=== PATIENT | male | born 1955 | race Caucasian/White ===

== ENCOUNTER 2020-03-16 11:35 | Emergency (ER) | payer OTHER ==
--- NOTE | 2020-03-16 11:55 | ER ---
Nurse's Notes [facility] Name: Дмитрий Lundy Age: 64 yrs Sex: Male : 1955 Arrival Date: 03/16/2020 Time: 11:29 Bed 17 Private MD: Diagnosis: Low back pain;Sciatica, right side Presentation: 03/16 11:31 Chief complaint: Patient states: R low back pain that began 3 days ago. No injury. Pt ss reports that the pain radiates down R leg as well. Coronavirus screen: Patient denies a cough. Patient denies shortness of breath or difficulty breathing. Patient denies measured and/or subjective temperature greater than 100.4F prior to today's visit. Patient denies travel on a cruise ship or to a country the [facility] currently lists as an affected area. Patient denies contact with known and/or suspected case of COVID-19. Proceed with normal triage. Patient instructed to continue to wear a mask when interacting with others. Patient moved to private room, placed in contact and droplet isolation with eye protection until further assessment. Ebola Screen: Patient denies exposure to infectious person. Patient denies travel to an Ebola-affected area in the 21 days before illness onset. Initial Sepsis Screen: Does the patient meet any 2 criteria? No. Patient's initial sepsis screen is negative. Does the patient have a suspected source of infection? No. Patient's initial sepsis screen is negative. Risk Assessment: Do you want to hurt yourself or someone else? Patient reports no desire to harm self or others. Onset of symptoms was March 13, 2020. 11:31 Method Of Arrival: EMS: [facility] ss 11:31 Acuity: RICHARD 4 ss Triage Assessment: 11:31 General: Appears in no apparent distress. uncomfortable, well developed, Behavior is sv calm, cooperative, appropriate for age. Pain: Complains of pain in right low back Pain radiates to right leg Pain currently is 2 out of 10 on a pain scale. Neuro: Level of Consciousness is awake, alert, obeys commands, Oriented to person, place, time, situation, Moves all extremities. Full function Speech is normal. Respiratory: Airway is patent Respiratory effort is even, unlabored, Respiratory pattern is regular, symmetrical. Derm: Skin is pink, warm \T\ dry. Musculoskeletal: Range of motion: intact in all extremities. Historical: - Allergies: 11:30 No Known Allergies; sv - PMHx: 11:30 Hypertension; Enlarged prostate; sv 11:30 High Cholesterol; Sleep Apnea; sv - PSHx: 11:30 Carpal Tunnel Repair; femur; sv - Immunization history:: Adult Immunizations up to date. - Social history:: Smoking status: Patient denies any tobacco usage or history of. Screenin:30 Abuse screen: Denies threats or abuse. Denies injuries from another. Nutritional sv screening: No deficits noted. Tuberculosis screening: No symptoms or risk factors identified. Fall Risk None identified. Assessment: 11:59 Reassessment: Patient appears in no apparent distress at this time. No changes from previously documented assessment. Patient and/or family updated on plan of care and expected duration. Pain level reassessed. Patient is alert, oriented x 3, equal unlabored respirations, skin warm/dry/pink. Pt waiting IM shot time before discharge. Vital Signs: 11:31 BP 128 / 93; Pulse 71; Resp 16; Temp 97.8(TE); Pulse Ox 98% on R/A; Weight 99.79 kg; ss Height 6 ft. 0 in. (182.88 cm); Pain 2/10; 12:21 BP 151 / 81; Pulse 63; Resp 17; Pulse Ox 99% ; ll1 11:31 Body Mass Index 29.84 (99.79 kg, 182.88 cm) ED Course: 11:29 Patient arrived in ED. sv 11:29 Ashley Newman, RN is Primary Nurse. sv 11:30 Patient has correct armband on for positive identification. Bed in low position. Call sv light in reach. Pulse ox on. NIBP on. Door closed. Head of bed elevated. 11:31 Arm band placed on right wrist. ss 11:33 Triage completed. ss 11:34 [facility]C [facility]. kb 11:34 Gurwinder Tanner MD is Attending Physician. kb 12:22 No provider procedures requiring assistance completed. Patient did not have IV access ll1 during this emergency room visit. Administered Medications: 11:57 Drug: TORadol 30 mg Route: IM; Site: right deltoid; sv 12:21 Follow up: Response: No adverse reaction; Pain is decreased; RASS: Alert and Calm (0) ll1 11:57 Drug: [place] 10 mg-325 mg 1 tabs {Note: rass1.} Route: PO; sv 12:21 Follow up: Response: No adverse reaction; RASS: Alert and Calm (0) ll1 Outcome: 11:55 Discharge ordered by . kb 12:22 Discharged to home ambulatory. ll1 12:22 Condition: stable 12:22 Discharge instructions given to patient, Instructed on discharge instructions, follow up and referral plans. no drinking with medication, no driving heavy equipment, medication usage, Demonstrated understanding of instructions, follow-up care, medications, Prescriptions given X 2. 12:22 Patient left the ED. ll1 Signatures: Alee Aguayo, FIRE PREVENTION BUREAU CAPTAIN-C FIRE PREVENTION BUREAU CAPTAIN-Ashley Hatfield RN RN Desiree Chan RN RN ss Chetna London RN RN 1 Corrections: (The following items were deleted from the chart) 11:59 11:59 Reassessment: Patient appears in no apparent distress at this time. No changes sv from previously documented assessment. Patient and/or family updated on plan of care and expected duration. Pain level reassessed. Patient is alert, oriented x 3, equal unlabored respirations, skin warm/dry/pink. sv
--- NOTE | 2020-03-16 11:55 | EDPHYS ---
Physician Documentation [facility] Name: Дмитрий Lundy Age: 64 yrs Sex: Male : 1955 Arrival Date: 03/16/2020 Time: 11:29 Bed 17 Private MD: TERI Physician Gurwinder Tanner HPI: 03/16 11:51 This 64 yrs old Male presents to ER via EMS with complaints of Low Back Pain. kb 11:51 The patient presents with pain that is acute, with no known mechanism of injury. The kb symptoms are located in the right low back. The pain radiates to the right leg. The problem was sustained without known cause. Onset: The symptoms/episode began/occurred 5 day(s) ago. Modifying factors: The patient symptoms are alleviated by nothing, the patient symptoms are aggravated by any movement. Associated signs and symptoms: Pertinent positives: none Pertinent negatives: dysuria, fever, incontinence, numbness, tingling, weakness. Severity of symptoms: At their worst the symptoms were moderate, in the emergency department the symptoms are unchanged. The patient has experienced similar episodes in the past, a few times. The patient has not recently seen a physician. Pt reports he has had sciatic nerve pain before and his current pain feels the same. States he started feeling that pain on Wednesday and believes it was irritated when he mowed the lawn that day. Denies injury or trauma. Right low back pain has been constant, waxing and waning with intermittent radiation down right leg. . Historical: - Allergies: 11:30 No Known Allergies; sv - PMHx: 11:30 Hypertension; Enlarged prostate; sv 11:30 High Cholesterol; Sleep Apnea; sv - PSHx: 11:30 Carpal Tunnel Repair; femur; sv - Immunization history:: Adult Immunizations up to date. - Social history:: Smoking status: Patient denies any tobacco usage or history of. ROS: 11:50 Constitutional: Negative for fever, chills, and weight loss, Cardiovascular: Negative kb for chest pain, palpitations, and edema, Respiratory: Negative for shortness of breath, cough, wheezing, and pleuritic chest pain, Abdomen/GI: Negative for abdominal pain, nausea, vomiting, diarrhea, and constipation, : Negative for injury, bleeding, discharge, and swelling, MS/Extremity: Negative for injury and deformity, Skin: Negative for injury, rash, and discoloration, Neuro: Negative for headache, weakness, numbness, tingling, and seizure. 11:50 Back: Positive for pain at rest, pain with movement, of the right low back. Exam: 11:50 Constitutional: This is a well developed, well nourished patient who is awake, alert, kb and in no acute distress. Head/Face: Normocephalic, atraumatic. Neck: Trachea midline, no thyromegaly or masses palpated, and no cervical lymphadenopathy. Supple, full range of motion without nuchal rigidity, or vertebral point tenderness. No Meningismus. Chest/axilla: Normal chest wall appearance and motion. Nontender with no deformity. No lesions are appreciated. Cardiovascular: Regular rate and rhythm with a normal S1 and S2. No gallops, murmurs, or rubs. Normal PMI, no JVD. No pulse deficits. Respiratory: Lungs have equal breath sounds bilaterally, clear to auscultation and percussion. No rales, rhonchi or wheezes noted. No increased work of breathing, no retractions or nasal flaring. Abdomen/GI: Soft, non-tender, with normal bowel sounds. No distension or tympany. No guarding or rebound. No evidence of tenderness throughout. Skin: Warm, dry with normal turgor. Normal color with no rashes, no lesions, and no evidence of cellulitis. MS/ Extremity: Pulses equal, no cyanosis. Neurovascular intact. Full, normal range of motion. Neuro: Awake and alert, GCS 15, oriented to person, place, time, and situation. Cranial nerves II-XII grossly intact. Motor strength 5/5 in all extremities. Sensory grossly intact. Cerebellar exam normal. Normal gait. 11:50 Back: pain, that is moderate, of the right low back, ROM is painful, normal spinal alignment noted, CVA tenderness, is absent, vertebral tenderness, is not appreciated. Vital Signs: 11:31 BP 128 / 93; Pulse 71; Resp 16; Temp 97.8(TE); Pulse Ox 98% on R/A; Weight 99.79 kg; ss Height 6 ft. 0 in. (182.88 cm); Pain 2/10; 12:21 BP 151 / 81; Pulse 63; Resp 17; Pulse Ox 99% ; ll1 11:31 Body Mass Index 29.84 (99.79 kg, 182.88 cm) MDM: 11:34 Patient medically screened. kb 11:51 Data reviewed: vital signs, nurses notes. Data interpreted: Pulse oximetry: on room air kb is 98 %. Interpretation: normal. Counseling: I had a detailed discussion with the patient and/or guardian regarding: the historical points, exam findings, and any diagnostic results supporting the discharge/admit diagnosis, the need for outpatient follow up, a family practitioner, to return to the emergency department if symptoms worsen or persist or if there are any questions or concerns that arise at home. Administered Medications: 11:57 Drug: TORadol 30 mg Route: IM; Site: right deltoid; sv 12:21 Follow up: Response: No adverse reaction; Pain is decreased; RASS: Alert and Calm (0) ll1 11:57 Drug: [place] 10 mg-325 mg 1 tabs {Note: rass1.} Route: PO; sv 12:21 Follow up: Response: No adverse reaction; RASS: Alert and Calm (0) ll1 Disposition: 03/17 10:23 Co-signature as Attending Physician, Gurwinder Tanner MD I agree with the assessment and todd plan of care. Disposition: 03/16/20 11:55 Discharged to Home. Impression: Low back pain, Sciatica, right side. - Condition is Stable. - Discharge Instructions: Back Injury Prevention, [id number], Back Pain, Adult, Nulx-kf-Oaav, Sciatica, Affx-ij-Hvrz, Back Exercises, Jspx-[id number]. - Prescriptions for Cyclobenzaprine 10 mg Oral Tablet - take 1 tablet by ORAL route every 8 hours As needed; 21 tablet. Diclofenac Sodium 75 mg Oral Tablet, Delayed Release (E.C.) - take 1 tablet by ORAL route 2 times per day As needed; 30 tablet. - Medication Reconciliation Form, Thank You Letter, Antibiotic Education, Prescription Opioid Use form. - Follow up: Emergency Department; When: As needed; Reason: Worsening of condition. Follow up: Private Physician; When: 2 - 3 days; Reason: Recheck today's complaints, Continuance of care, Re-evaluation by your physician. Signatures: Alee Aguayo, Ashley Hein RN RN sv Anderson, Corey, MD MD cha [facility] Desiree, ELADIA RN ss Chetna London RN RN ll1 Corrections: (The following items were deleted from the chart) 03/16 12:22 11:55 03/16/2020 11:55 Discharged to Home. Impression: Low back pain; Sciatica, right ll1 side. Condition is Stable. Forms are Medication Reconciliation Form, Thank You Letter, Antibiotic Education, Prescription Opioid Use. Follow up: Emergency Department; When: As needed; Reason: Worsening of condition. Follow up: Private Physician; When: 2 - 3 days; Reason: Recheck today's complaints, Continuance of care, Re-evaluation by your physician. kb
[2020-03-16] MEDS ORDERED: HYDROCODONE/APAP 10/325 TAB ONE (12:00)
[2020-03-16] MEDS ORDERED: KETOROLAC 30 MG/ML INJ ONE (12:00)
[2020-03-16 12:26] VITALS: BP 151/81; O2SAT 99
== END 2020-03-16 12:22 | disposition home or self-care (01) ==
LOC: ER 11:35
DX: M54.31 Sciatica, right side (principal); I10 Essential (primary) hypertension
CPT/HCPCS: 96372; 99284

== ENCOUNTER 2020-10-29 06:32 | Day surgery (SDC) | payer OTHER ==
--- NOTE | 2020-10-24 14:47 | RAD REPORT ---
EXAM DESCRIPTION: Christian Robles (2 Views)10/24/2020 2:40 pm CLINICAL HISTORY: Preop for prostate surgery. Hypertension COMPARISON: 2008 FINDINGS: The lungs appear clear of acute infiltrate. The heart is normal size IMPRESSION: No acute abnormalities displayed
[2020-10-24 15:31] LABS: Absolute Lymphocytes (CBC) 1.3 K/uL (0.7-4.9); Basophils % 0.5 % (0-1.3); Hematocrit 42.5 % (39.6-49.0); Lymphocytes % 16.4 % (15.3-44.8); MPV 9.3 fL (7.6-11.3); RBC Red Blood Cell Count 4.83 M/uL (4.33-5.43)
[2020-10-24 15:32] LABS: Protime INR 0.95
[2020-10-24 15:36] LABS: Potassium 3.9 mmol/L (3.5-5.1)
--- NOTE | 2020-10-25 14:12 | EKG ---
Test Date: 2020-10-24 Test Time: 14:12:30 Senior Managing Director: TAL MEASUREMENT RESULTS: Intervals: Rate: 77 [place]: 146 QRSD: 84 QT: 364 QTc: 411 [place]: P: 57 [place]: 146 QRS: -2 T: 47 INTERPRETIVE STATEMENTS: Normal sinus rhythm Normal ECG Compared to ECG 10/27/2007 09:47:53 No significant changes Electronically Signed On 10-25-20 14:09:11 SYSTEMS ANALYST DEVELOPER by Mark Payton
[2020-10-29] MEDS: Ringers Lactate 1,000 ML IV ONE ×3 (07:00→09:25)
[2020-10-29] MEDS ORDERED: FENTANYL CITR 100 MCG/2 ML ONE (07:20)
[2020-10-29] MEDS ORDERED: propofoL 200 MG/20 ML VIAL IV ONE (07:20)
[2020-10-29] MEDS ORDERED: LIDOCAINE 1% MPF 5 ML VIAL ONE (07:21)
[2020-10-29] MEDS ORDERED: KETOROLAC 30 MG/ML INJ ONE (07:21)
[2020-10-29] MEDS ORDERED: ONDANSETRON 4 MG/2 ML VIAL ONE (07:21)
[2020-10-29] MEDS ORDERED: MIDAZOLAM HCL 2 MG/2 ML INJ ONE (07:21)
[2020-10-29] MEDS ORDERED: dexAMETHasone 10 MG/ML VIAL ONE (07:21)
[2020-10-29] MEDS ORDERED: ROCURONIUM 50 MG/5 ML VIAL IV ONE (07:31)
[2020-10-29] MEDS ORDERED: Gentamicin Inj 240 MG in NA CHLORIDE 0.9% 100 ML IV ONE (08:00)
[2020-10-29] MEDS ORDERED: AMPICILLIN SODIUM 2 GM in NA CHLORIDE 0.9% 100 ML IVPB ONE (08:00)
[2020-10-29 09:58] VITALS: O2SAT 100
[2020-10-29] MEDS ORDERED: HYDROCODONE/APAP 5/325 MG TAB PO PRN (10:00)
[2020-10-29] MEDS ORDERED: PHENAZOPYRIDINE 100MG TAB PO ONE (10:00)
[2020-10-29] MEDS ORDERED: MEPERIDINE HCL 25 MG/ML SYR ONE (10:10)
[2020-10-29 10:22] VITALS: BP 124/80; TEMP 96.4
[2020-10-29] MEDS ORDERED: HYDROCODONE/APAP 5/325 MG TAB ONE (10:44)
--- NOTE | 2020-10-29 10:54 | OP ---
Surgeon: SHELBI GARVEY Preoperative Diagnoses: 1.Benign prostatic hypertrophy with lower urinary tract obstructive symptoms. 2.Enlarged prostate-95 g. Postoperative Diagnoses: 1.Benign prostatic hypertrophy with lower urinary tract obstructive symptoms. 2.Enlarged prostate-95 g. Principle Procedure: Bipolar transurethral resection of the prostate. Indication For Procedure: Mr. Lundy presented to Urology Clinic with obstructive urinary symptoms sec ondary to BPH with a very enlarged prostate. He underwent outpatient clinical evaluation and valente sears elected to proceed with surgical therapy as he had failed medical therapy with both tamsulosin an d dutasteride. He was counseled appropriately as to the potential risks and side effects of the oper ation to include bleeding, infection, injury to the bladder or ureteral orifices, rectal injury, inco ntinence, impotence, or erectile dysfunction. Procedure In Detail: The patient was consented in the preoperative holding area before being transfe rred to the operative suite where general anesthesia using an LMA was induced. He was given 2 g of a mpicillin and 240 mg gentamicin IV antimicrobial prophylaxis and pneumo boots were provided for DVT p rophylaxis. He was placed in the lithotomy position, padded and secured to the table appropriately. His genitalia were prepped using Hibiclens and he was draped in standard fashion. The case was begu n using urethral sounds to dilate the meatus and fossa navicularis to 28-Salvadorean. Then, using a visua l obturator and the bipolar resectoscope, I was able to navigate the sheath into the urethra and branden erse it before surpassing a significantly obstructive appearing prostate with an intravesically proje cting median lobe that abutted the ureteral orifices bilaterally and into the bladder. Then employin g the bipolar loop and normal saline, I began by resecting the median lobe, taking care to avoid inju ry to the ureteral orifices, and this was dissected down to the level of the bladder neck. I then re sected the remainder of the entirety of the median bar down to the verumontanum to ensure a smooth tr ough. I then resected the left lateral lobe at the bladder neck and then the more medial apical comp onent of the lateral lobe to the anterior zone of the prostate. I similarly resected the right later al lobe at the bladder neck and then the medial apical component of the right lateral lobe to the ant erior zone of the prostate and any anterior overhang was also resected. Care was taken to fulgurate bleeding along the way, and any excess of prostatic chips would be Ellik evacuated as necessary. I dalila dorado resected the significantly overlapping and overhanging lateral lobar hypertrophy at the apex of t he prostate at the level of the verumontanum in order to ensure a smooth injury through the prostatic urethra. The verumontanum was preserved, and resection beyond the most proximal border of the verum ontanum was not performed. Care was taken to remove all prostate urethral chips, and a search for bl eeding was undertaken. All bleeding was fulgurated in its entirety, and with the bladder decompresse d and with minimal fluid inflow, any additional venous ooze was also fulgurated until the entire alberto a was completely hemostatic. I then reassessed for the integrity of the ureteral orifices, and once that was confirmed and no bladder injury was noted, the bladder was left full and the scope was retra cted. I then placed a 24-Salvadorean 3-way Mirza catheter into his bladder with ease and placed approxima tely 45 cc of sterile water into the balloon. The patient was then taken out of the lithotomy positi on. The catheter was placed to moderate traction and to continuous bladder irrigation using normal s stella. With slow drip, the returning efflux was crystal clear. The patient was then awakened from g eneral anesthesia, transferred to a stretcher, and then transferred to the recovery room in good cond ition. Complications: None. Discharge Disposition: He will undergo CBI with normal saline for the next hour or 2 with a catheter to traction for the next hour and then taken down. If his urine remains lysing to clear, the CBI wi ll be weaned to off. He will be given a belladonna and opiate suppositories for local pain managemen t, and he will then be discharged with the catheter to a leg bag with a floor bag available for night time use. Followup should be established within the next 3-5 days in the Urology Clinic for an activ e voiding trial with nurse practitioner, Edwardo. He will be discharged with a prescription for Nor co for pain and Bactrim as antimicrobial prophylaxis, which should continue for at least 24 hours aft er the catheter is removed. He may also purchase dmmj-ybb-[id number] azo for burning or pain with urina tion to start the day the catheter is scheduled to be removed. SHREE/VALERI Voice ID: [id number] Report ID: [id number]
== END 2020-10-29 11:31 | disposition home or self-care (01) ==
LOC: OR 06:32
PROVIDERS: ATTEND Urology
PROC: 0VT08ZZ Resection of Prostate, Via Natural or Artificial Opening Endoscopic (ICD-10-PCS; principal; 2020-10-29 07:30)
DX: N40.1 Benign prostatic hyperplasia with lower urinary tract symptoms (principal); Z20.822 Contact with and (suspected) exposure to COVID-19
CPT/HCPCS: 93005; 87088; 85025; 87086; 80048; 36415; 85610; 88305; 71046; 52601; U0002; J2704; J1580; J2250; J3010; J1100; J2175; J7120 ×2; J2405; J0290

== ENCOUNTER 2021-12-30 15:19 | Emergency (ER) | payer OTHER ==
[2021-12-30] MEDS ORDERED: GLUCAGON 1 MG/VIAL ONE ×2 (15:46→17:18)
[2021-12-30] MEDS ORDERED: MAGNESIUM SULFATE 1 gm IVPB 1 GM/100 ML BAG IV ONE (15:46)
[2021-12-30] MEDS ORDERED: METOCLOPRAMIDE 10 MG/2mL INJ ONE (16:20)
--- NOTE | 2021-12-30 16:27 | RAD REPORT ---
EXAM DESCRIPTION: RAD - Chest Single View - 12/30/2021 3:57 pm CLINICAL HISTORY: dysphagia COMPARISON: Two view chest 10/24/2020 TECHNIQUE: AP portable chest image was obtained 12/30/2021 3:57 pm . FINDINGS: Lung volumes are low. Interstitial pattern not clearly different from comparison. No acute lung parenchymal process. Heart and vasculature are normal. No measurable pleural effusion and no pn eumothorax. No acute bony abnormality seen. No acute aortic findings suspected. IMPRESSION: No acute cardiopulmonary process.
--- NOTE | 2021-12-30 17:48 | EDPHYS ---
Physician Documentation [facility] Name: Дмитрий Lundy Age: 66 yrs Sex: Male : 1955 Arrival Date: 12/30/2021 Time: 15:21 Bed 17 Private MD: ED Physician Adolph Madrid HPI: 12/30 15:30 This 66 yrs old Male presents to ER via Ambulatory with complaints of Foreign Body In pm1 Throat - food stuck. 15:30 The patient presents with foreign body sensation in throat after eating a fajita meat pm1 taco. Onset: The symptoms/episode began/occurred just prior to arrival. Associated signs and symptoms: Pertinent negatives: chest pain, shortness of breath. Modifying factors: The symptoms are alleviated by nothing, the symptoms are aggravated by Drinking water. The patient has not experienced similar symptoms in the past. The patient has not recently seen a physician. Historical: - PMHx: 16:43 enlarged prostate; High Cholesterol; Hypertension; Sleep Apnea; ss ROS: 15:30 Constitutional: Negative for fever, chills, and weight loss, Cardiovascular: Negative pm1 for chest pain, palpitations, and edema, Respiratory: Negative for shortness of breath, cough, wheezing, and pleuritic chest pain. 15:30 MS/Extremity: Negative for injury and deformity, Skin: Negative for injury, rash, and discoloration, Neuro: Negative for headache, weakness, numbness, tingling, and seizure. 15:30 Abdomen/GI: Positive for dysphagia, Negative for abdominal pain. 15:30 All other systems are negative. Exam: 15:30 Constitutional: This is a well developed, well nourished patient who is awake, alert, pm1 and in no acute distress. Head/Face: Normocephalic, atraumatic. 15:30 Skin: Warm, dry with normal turgor. Normal color with no rashes, no lesions, and no evidence of cellulitis. MS/ Extremity: Pulses equal, no cyanosis. Neurovascular intact. Full, normal range of motion. 15:30 Cardiovascular: Exam negative for acute changes, Rate: normal, Rhythm: regular, Pulses: no pulse deficits are appreciated. 15:30 Respiratory: Exam negative for acute changes, respiratory distress, shortness of breath. 15:30 Abdomen/GI: Exam negative for acute changes, Inspection: abdomen appears normal, Palpation: abdomen is soft and non-tender, in all quadrants. 15:30 Neuro: Exam negative for acute changes, Orientation: is normal, Motor: is normal, moves all fours. Vital Signs: 16:00 BP 112 / 67; Pulse 98; Resp 20; Temp 97.7(TE); Pulse Ox 100% ; Weight 97.52 kg; Height 6 5 ft. 11 in. (180.34 cm); Pain 5/10; 17:06 BP 125 / 88; Pulse 92; Resp 18; Pulse Ox 97% ; Pain 3/10; jh6 16:00 Body Mass Index 29.99 (97.52 kg, 180.34 cm) [facility] MDM: 15:30 Patient medically screened. pm1 17:46 Data reviewed: vital signs. Data interpreted: Pulse oximetry: on room air is 97 %. pm1 Interpretation: normal. 17:46 Counseling: I had a detailed discussion with the patient and/or guardian regarding: the pm1 historical points, exam findings, and any diagnostic results supporting the discharge/admit diagnosis, radiology results, the need for outpatient follow up, to return to the emergency department if symptoms worsen or persist or if there are any questions or concerns that arise at home. 17:46 ED course: Patient feels that food bolus is gone and is able to drink water without any pm1 difficulty. 12/30 15:29 Order name: Chest Single View XRAY; Complete Time: 16:29 pm1 12/30 15:28 Order name: IV Saline Lock; Complete Time: 15:38 pm1 Administered Medications: 15:50 Drug: GlucaGen (glucagon) 1 mg Route: IVP; Site: left antecubital; 16:50 Follow up: Response: No adverse reaction; No change in condition [facility] 15:52 Drug: Magnesium Sulfate 1 grams Route: IVPB; Infused Over: 1 hrs; Site: left ww antecubital; 16:49 Follow up: Response: No adverse reaction; No change in condition [facility] 16:19 Drug: Reglan (metoCLOPramide) 10 mg Route: IVP; Site: left antecubital; [facility] 16:49 Follow up: Response: No adverse reaction; No change in condition [facility] 17:10 Drug: GlucaGen (glucagon) 1 mg Route: IVP; Site: left forearm; jh6 Disposition: 18:54 Co-signature as Attending Physician, Adolph Madrid MD. rn Disposition Summary: 12/30/21 17:48 Discharge Ordered Location: Home pm1 Problem: new pm1 Symptoms: have improved pm1 Condition: Stable pm1 Diagnosis - Foreign body in esophagus - Food bolus resolved pm1 Followup: pm1 - With: Emergency Department - When: As needed - Reason: Worsening of condition Followup: pm1 - With: Private Physician - When: 2 - 3 days - Reason: Recheck today's complaints, Continuance of care, Re-evaluation by your physician Discharge Instructions: - Discharge Summary Sheet pm1 Forms: - Medication Reconciliation Form pm1 - Thank You Letter pm1 - Antibiotic Education pm1 - Prescription Opioid Use pm1 Signatures: Dispatcher [employer] EDMS Adolph Madrid MD MD rn Smirch, Shelby RN RN Ken Maldonado, HALINA PROJECT LEADER pm1 Mariluz Hinson RN RN jh6 Maya Lopez RN RN ww
--- NOTE | 2021-12-30 17:48 | ER ---
Nurse's Notes [facility] Name: Дмитрий Lundy Age: 66 yrs Sex: Male : 1955 Arrival Date: 12/30/2021 Time: 15:21 Bed 17 Private MD: Diagnosis: Foreign body in esophagus-Food bolus resolved Presentation: 12/30 15:28 Chief complaint: Patient states: food bolus. Coronavirus screen: Client denies travel ss out of the [place] in the last 14 days. Ebola Screen: Patient denies exposure to infectious person. Patient denies travel to an Ebola-affected area in the 21 days before illness onset. Initial Sepsis Screen: Does the patient meet any 2 criteria? No. Patient's initial sepsis screen is negative. Does the patient have a suspected source of infection? No. Patient's initial sepsis screen is negative. Risk Assessment: Do you want to hurt yourself or someone else? Patient reports no desire to harm self or others. Onset of symptoms was December 30, 2021. 15:28 Method Of Arrival: Ambulatory ss 15:28 Acuity: RICHARD 2 ss Historical: - PMHx: 16:43 enlarged prostate; High Cholesterol; Hypertension; Sleep Apnea; ss Screenin:58 Abuse screen: Denies threats or abuse. Denies injuries from another. jh6 15:58 Nutritional screening: No deficits noted. Tuberculosis screening: No symptoms or risk jh6 factors identified. Fall Risk Assessment: 15:58 General: Appears distressed, uncomfortable, well groomed, Behavior is cooperative, jh6 anxious. 15:58 Pain: Complains of pain in neck Pain currently is 5 out of 10 on a pain scale. Quality jh6 of pain is described as pressure, Pain began suddenly, Is continuous, Aggravated by eating, drinking. Cardiovascular: No deficits noted. Respiratory: No deficits noted. Airway is patent Trachea midline Respiratory effort is even, relaxed, Respiratory pattern is regular. GI: Reports nausea, vomiting. 17:05 Reassessment: Patient and/or family updated on plan of care and expected duration. Pain jh6 level reassessed. pt reporting that he was able to throw up small amount of food but that he still feels like there is something else still in throat. 18:11 Reassessment: Patient appears in no apparent distress at this time. Patient and/or ss family updated on plan of care and expected duration. Pain level reassessed. Patient is alert, oriented x 3, equal unlabored respirations, skin warm/dry/pink. Patient denies pain at this time. Patient states feeling better. Patient states symptoms have improved. Vital Signs: 16:00 BP 112 / 67; Pulse 98; Resp 20; Temp 97.7(TE); Pulse Ox 100% ; Weight 97.52 kg; Height [facility] 5 ft. 11 in. (180.34 cm); Pain 5/10; 17:06 BP 125 / 88; Pulse 92; Resp 18; Pulse Ox 97% ; Pain 3/10; jh6 16:00 Body Mass Index 29.99 (97.52 kg, 180.34 cm) [facility] ED Course: 15:21 Patient arrived in ED. as 15:25 Ken Hardy NP is PHCP. pm1 15:25 Adolph Madrid MD is Attending Physician. pm1 15:47 Mariluz Hinson, ELADIA is Primary Nurse. [facility] 15:55 Inserted saline lock: 20 gauge in right antecubital area, using aseptic technique. 6 15:58 Chest Single View XRAY In Process Unspecified. EDMS 15:58 Bed in low position. Call light in reach. Side rails up X2. Adult w/ patient. 6 16:43 Triage completed. ss 18:10 No provider procedures requiring assistance completed. IV discontinued, intact, ss bleeding controlled, No redness/swelling at site. Pressure dressing applied. Administered Medications: 15:50 Drug: GlucaGen (glucagon) 1 mg Route: IVP; Site: left antecubital; 16:50 Follow up: Response: No adverse reaction; No change in condition [facility] 15:52 Drug: Magnesium Sulfate 1 grams Route: IVPB; Infused Over: 1 hrs; Site: left ww antecubital; 16:49 Follow up: Response: No adverse reaction; No change in condition [facility] 16:19 Drug: Reglan (metoCLOPramide) 10 mg Route: IVP; Site: left antecubital; [facility] 16:49 Follow up: Response: No adverse reaction; No change in condition [facility] 17:10 Drug: GlucaGen (glucagon) 1 mg Route: IVP; Site: left forearm; [facility] Outcome: 17:48 Discharge ordered by . pm1 18:10 Discharged to home ambulatory. 18:10 Condition: improved 18:10 Discharge instructions given to patient, family, Instructed on discharge instructions, follow up and referral plans. Demonstrated understanding of instructions, follow-up care. 18:11 Patient left the ED. ss Signatures: Dispatcher [employer] Gisele Cantor Shelby, RN RN Ken Hardy, HEAT CURER HEAT CURER pm1 Chetna London RN RN 1 Mariluz Hinson RN RN 6 Maya Lopez RN RN ww Corrections: (The following items were deleted from the chart) 16:43 15:24 Chief complaint: ll1 ss
[2021-12-30 20:03] VITALS: TEMP 97.7
[2021-12-30 20:04] VITALS: BP 125/88; O2SAT 97
== END 2021-12-30 18:11 | disposition home or self-care (01) ==
LOC: ER 15:19
DX: T18.128A Food in esophagus causing other injury, initial encounter (principal); R13.10 Dysphagia, unspecified; E78.00 Pure hypercholesterolemia, unspecified; I10 Essential (primary) hypertension
CPT/HCPCS: 71045; J1610 ×2; J2765; J3475; 99283

== ENCOUNTER 2023-04-23 14:06 | Emergency (ER) | payer OTHER ==
--- OUTSIDE RECORDS SUMMARY | 2023-04-23 14:08 | XMS REPORT | Continuity of Care Document ---
:1955 Author Organization [facility] t Address [address] [place] [address] [address] [place] [address] Care Team Providers Name Role Phone Josh Wong Attending Clinician Unavailable Problems Condition Condition Condition Status Onset Resolution Last Treating Co mments Source Name Details Category Date Date Treatment Clinician Date Carpal Carpal Problem Common tunnel tunnel Spirit syndrome syndrome - [facility] [id number] Acute Problem Common hemorrhagi Spirit c otitis - [facility] externa of left ear [facility] Benign BPH loc Problem Common prostatic w/o ur Spirit hypertroph obs/LUTS - [facility] I y without St outflow [facility] obstructio Medica [facility] [id number] Body mass Problem Com mon index Spirit (BMI) of - [facility] 31.0-31.9 St in [facility] [id number] S/P TURP Problem Comm on (status [facility] post - [facility] transureth [facility] prostate) [id number] Cerumen Problem Commo n debris on Spirit tympanic - CHI membrane St of right [facility] Incontinen Incontinen Problem C ommon ce ce Spirit - [facility] Hyperlipid Hyperlipid Problem C ommon emia emia Spirit - [facility] Malignant Prostate Problem Comm on tumor of ca [facility] prostate - [facility] [id number] Incomplete Problem Co mmon emptying Spirit of bladder - [facility] Obstructiv Obstructiv Problem C ommon e sleep e sleep Spirit apnea apnea - [facility] Disorder Prostate Problem Commo n of disorder Spirit prostate [facility] Hypertensi Hypertensi Problem C ommon on on [facility] Allergies, Adverse Reactions, Alerts This patient has no known allergies or adverse reactions. Social History Social Habit Start Date Stop Date Quantity Comments Source History of Tobacco Use Co mmon [facility] Sex Assigned At Com mon [facility] Smoking Status Start Date Stop Date Source Never Smoker Common [facility] Medications Ordered Filled Start Stop Current Ordering Indication Dosage Frequency Signature Comments Components Source Medication Medication Date Date Medication? Clinician (SIG) Name Name Gentamicin Gentamicin No 160mg Common 80mg 80mg 02-26 Spirit 00:00: [facility] dilTIAZem dilTIAZem No 1{capsu QD dilTIAZem HCl ER 180 HCl ER 180 le_on_a HCl ER 180 MG MG n_empty MG _stomac h_in_th e_morni ng} Loratadine Loratadine No 1{table QD Loratadine 10 MG 10 MG t} 10 MG Simvastatin Simvastatin No 1{table QD Simvastati 20 MG 20 MG t_in_th n 20 MG e_eveni ng} hydroCHLORO hydroCHLORO No 1{table QD hydroCHLOR thiazide 25 thiazide 25 t_in_th Othiazide MG MG e_morni 25 MG ng} Aspirin 81 Aspirin 81 No 1{table QD Aspirin 81 MG MG t} MG Vital Signs Vital Name Observation Time Observation Value Comments Source height 2022-06-25 11:15:00 71 [in_i] [facility] weight 2022-06-25 11:15:00 207 [lb_av] [facility] temperature 2022-06-25 11:15:00 98.3 [degF] [facility] bmi 2022-06-25 11:15:00 28.87 kg/m2 [facility] oximetry 2022-06-25 11:15:00 97 % [facility] respiratory rate 2022-06-25 11:15:00 16 /min Comm on [facility] blood pressure 2022-06-25 11:15:00 131 mm[Hg] Common [facility] - systolic [facility] blood pressure 2022-06-25 11:15:00 81 mm[Hg] Common [facility] - diastolic [facility] Procedures This patient has no known procedures. Encounters Start End Encounter Admission Attending Care Care Encounter Source Date/Time Date/Time Type Type Clinicians Facility Department ID 2022-06-25 Outpatient Wong, STLMLC [facility] [id number] Common 10:43:05 Josh [facility] 2022-06-25 2022-06-25 OFFICE [facility] [id number] Co mmon 00:00:00 00:00:00 VISIT [facility] LEVEL 2 [facility] Results This patient has no known results.
[2023-04-23 14:58] LABS: Absolute Lymphocytes (CBC) 1.2 K/uL (0.7-4.9); Hematocrit 42.3 % (39.6-49.0); Lymphocytes % 18.1 % (15.3-44.8); MCV 88.1 fL (80-100); MPV 8.4 fL (7.6-11.3); Platelets 219 thou/uL (152-406); RBC Red Blood Cell Count 4.81 M/uL (4.33-5.43)
[2023-04-23] MEDS ORDERED: MORPHINE 4 MG/ML SYR ONE ×2 (15:00→16:38)
[2023-04-23] MEDS ORDERED: ONDANSETRON 4 MG/2 ML VIAL ONE (15:00)
[2023-04-23 15:14] LABS: Albumin 3.8 g/dL (3.4-5.0); Bilirubin Total 0.6 mg/dL (0.2-1.0); Potassium 3.6 mEq/L (3.5-5.1)
--- NOTE | 2023-04-23 15:53 | RAD REPORT ---
EXAM DESCRIPTION: CT - Abdomen Pelvis W Contrast - 04/23/2023 3:27 pm CLINICAL HISTORY: Abdominal pain. Left flank pain 2 COMPARISON: none. TECHNIQUE: Computed axial tomography of the abdomen pelvis was obtained. 100 cc Isovue-300 was admin istered intravenously. Oral contrast was not requested which limits evaluation of bowel and appendix All CT scans are performed using dose optimization technique as appropriate and may include automated exposure control or mA/KV adjustment according to patient size. FINDINGS: Tiny hepatic cyst The spleen, pancreas, adrenals and kidneys are unremarkable No evidence of diverticulitis. Prostate gland moderately enlarged. There may been a TURP. Avulsion fractures left transverse processes of L1, L2 and L3 Small to moderate right inguinal hernia contains fat Old ununited fracture mid posterior right rib IMPRESSION: Avulsion fractures left transverse processes of L1, L2 and L3
[2023-04-23] MEDS ORDERED: KETOROLAC 30 MG/ML INJ ONE (16:38)
[2023-04-23] MEDS ORDERED: CYCLOBENZAPRINE 10 MG TAB ONE (16:38)
--- NOTE | 2023-04-23 17:20 | EDPHYS ---
Physician Documentation [facility] Name: Дмитрий Lundy Age: 67 yrs Sex: Male : 1955 Arrival Date: 04/23/2023 Time: 14:06 Bed 20 Private MD: ED Physician Justyn Campa HPI: 04/23 17:28 This 67 yrs old Male presents to ER via EMS with complaints of Fall Injury. rt 17:28 Patient presents to the ED with a fall. Patient excellently ran into a pole with his rt left hip, then falling onto his left side. He does report a pain to his left hip region, higher up. Denies hitting his head, other acute complaints. Symptoms are moderate severity, aching nature, nonradiating, no other aggravating or alleviating factors.. Historical: - Allergies: 14: No Known Allergies; hb - PMHx: 14:25 enlarged prostate; High Cholesterol; Hypertension; Sleep Apnea; hb - Immunization history:: Adult Immunizations up to date. - Social history:: Smoking status: Patient denies any tobacco usage or history of. ROS: 17:42 Constitutional: Negative for fever, chills, and weight loss, Cardiovascular: Negative rt for chest pain, palpitations, and edema, Respiratory: Negative for shortness of breath, cough, wheezing, and pleuritic chest pain, Abdomen/GI: Negative for abdominal pain, nausea, vomiting, diarrhea, and constipation, Skin: Negative for injury, rash, and discoloration, Neuro: Negative for headache, weakness, numbness, tingling, and seizure, Psych: Negative for depression, anxiety, suicide ideation, homicidal ideation, and hallucinations. 17:42 MS/extremity: Positive for contusion, pain. Exam: 17:42 Constitutional: This is a well developed, well nourished patient who is awake, alert, rt and in no acute distress. Head/Face: Normocephalic, atraumatic. Chest/axilla: Normal chest wall appearance and motion. Nontender with no deformity. No lesions are appreciated. Cardiovascular: Regular rate and rhythm with a normal S1 and S2. No gallops, murmurs, or rubs. Normal PMI, no JVD. No pulse deficits. Respiratory: Lungs have equal breath sounds bilaterally, clear to auscultation and percussion. No rales, rhonchi or wheezes noted. No increased work of breathing, no retractions or nasal flaring. Skin: Warm, dry with normal turgor. Normal color with no rashes, no lesions, and no evidence of cellulitis. MS/ Extremity: Pulses equal, no cyanosis. Neurovascular intact. Full, normal range of motion. Neuro: Awake and alert, GCS 15, oriented to person, place, time, and situation. Cranial nerves II-XII grossly intact. Motor strength 5/5 in all extremities. Sensory grossly intact. Cerebellar exam normal. Normal gait. Psych: Awake, alert, with orientation to person, place and time. Behavior, mood, and affect are within normal limits. 17:42 Abdomen/GI: Mild tenderness to the lateral lower abdominal wall. Vital Signs: 14:23 BP 150 / 82; Pulse 82; Resp 16; Temp 98; Pulse Ox 100% on R/A; Weight 90.72 kg; Height hb 6 ft. 2 in. ; Pain 8/10; 15:00 BP 106 / 82; Pulse 75; Resp 16; Pulse Ox 98% ; eh3 16:00 BP 133 / 78; Pulse 65; Resp 18; Pulse Ox 100% on R/A; eh3 17:00 BP 129 / 90; Pulse 68; Resp 18; Pulse Ox 100% on R/A; eh3 14:23 Body Mass Index 25.68 (90.72 kg, 187.96 cm) hb 14:23 Pain Scale: Adult hb MDM: 14:20 Patient medically screened. rn 17:42 Differential diagnosis: Fracture, contusion, intra-abdominal injury. Data reviewed: rt vital signs, nurses notes. Consideration of Admission/Observation Escalation of care including admission/observation considered. I considered the following discharge prescriptions or medication management in the emergency department Medications were administered in the Emergency Department. See MAR. Independent interpretation of the following test(s) in the Emergency Department CT Scan: My interpretation is No pelvic, hip fractures, interpretation of the CT scan images. 17:43 Care significantly affected by the following chronic conditions: Hypertension. rt Counseling: I had a detailed discussion with the patient and/or guardian regarding the historical points, exam findings, and any diagnostic results supporting the discharge/admit diagnosis, radiology results, the need for outpatient follow up. Response to treatment: the patient's symptoms have markedly improved after treatment, After second dose of pain medicines, patient reports significant pain improvement, is able to ambulate unassisted.. 04/23 14:29 Order name: CBC with Diff; Complete Time: 15:18 rt 04/23 14:29 Order name: CMP; Complete Time: 15:18 rt 04/23 14:29 Order name: CT Abd/Pelvis - IV Contrast Only; Complete Time: 16:02 rt Administered Medications: 14:55 Drug: morphine IVP or IV 4 mg Route: IVP; Infused Over: 4 mins; Site: left antecubital; eh3 16:43 Follow up: Response: No adverse reaction eh3 14:55 Drug: Ondansetron IVP 4 mg Route: IVP; Site: left antecubital; eh3 16:43 Follow up: Response: No adverse reaction eh3 16:43 Drug: Ketorolac IVP 15 mg Route: IVP; Site: left antecubital; eh3 16:43 Drug: Cyclobenzaprine PO 10 mg Route: PO; eh3 16:43 Drug: morphine IVP or IV 4 mg Route: IVP; Infused Over: 4 mins; Site: left antecubital; eh3 Disposition Summary: 04/23/23 17:19 Discharge Ordered Location: Home rt Problem: new rt Symptoms: have improved rt Condition: Stable rt Diagnosis - Mechanical fall rt - Avulsion fracture of transverse processes of L1-L3 rt Followup: rt - With: Private Physician - When: 2 - 3 days - Reason: Discharge Instructions: - Discharge Summary Sheet rt - Transverse Process Fracture rt Forms: - Medication Reconciliation Form rt - Thank You Letter rt - Antibiotic Education rt - Prescription Opioid Use rt - Patient Portal Instructions rt - Leadership Thank You Letter rt Prescriptions: - Lidoderm 5 % Topical adhesive patch, medicated - apply 1 patch by TOPICAL route every 24 hours leave on most painful area for up rt to 12 hrs; 7 patch; Refills: 0, Product Selection Permitted - acetaminophen-codeine 300-30 mg Oral tablet - take 1 tablet by ORAL route every 6 hours as needed for pain; 21 tablet; rt Refills: 0, Product Selection Permitted - Cyclobenzaprine 10 mg Oral Tablet - take 1 tablet by ORAL route every 8 hours As needed; 30 tablet; Refills: 0, rt Product Selection Permitted Signatures: Dispatcher [employer] Adolph Amado MD MD rn Baxter, Heather, RN RN hb Anita Recio, RN RN eh3 Justyn Campa MD MD rt
--- NOTE | 2023-04-23 17:20 | ER ---
Nurse's Notes [facility] Name: Дмитрий Lundy Age: 67 yrs Sex: Male : 1955 Arrival Date: 04/23/2023 Time: 14:06 Bed 20 Private MD: Diagnosis: Mechanical fall;Avulsion fracture of transverse processes of L1-L3 Presentation: 04/23 14:23 Chief complaint: EMS states: Lost balance while ambulating to car, ran into pole with hb left hip, then fell to concrete onto left side. Reports left hip pain 04/08. Denies other injuries. Negative LOC. Coronavirus screen: At this time, the client does not indicate any symptoms associated with coronavirus-19. Ebola Screen: No symptoms or risks identified at this time. Initial Sepsis Screen: Does the patient meet any 2 criteria? No. Patient's initial sepsis screen is negative. Does the patient have a suspected source of infection? No. Patient's initial sepsis screen is negative. Risk Assessment: Do you want to hurt yourself or someone else? Patient reports no desire to harm self or others. Onset of symptoms was April 23, 2023. 14:23 Method Of Arrival: EMS: [facility] hb 14:23 Acuity: RICHARD 3 hb Historical: - Allergies: 14:25 No Known Allergies; hb - PMHx: 14:25 enlarged prostate; High Cholesterol; Hypertension; Sleep Apnea; hb - Immunization history:: Adult Immunizations up to date. - Social history:: Smoking status: Patient denies any tobacco usage or history of. Screenin:30 [facility] ED Fall Risk Assessment (Adult) Score/Fall Risk Level 0 - 2 = Low Risk. Abuse eh3 screen: Denies threats or abuse. Denies injuries from another. Nutritional screening: No deficits noted. Tuberculosis screening: No symptoms or risk factors identified. Assessment: 14:30 General: Appears in no apparent distress. uncomfortable, Behavior is calm, cooperative, eh3 appropriate for age. Pain: Complains of pain in left arm. Neuro: Level of Consciousness is awake, alert, obeys commands, Oriented to person, place, time, situation. Cardiovascular: Capillary refill < 3 seconds Patient's skin is warm and dry. Respiratory: Airway is patent Respiratory effort is even, unlabored, Respiratory pattern is regular, symmetrical. GI: Abdomen is round non-distended. Derm: Skin is pink, warm \T\ dry. Musculoskeletal: Circulation, motion, and sensation intact. 15:00 Reassessment: Patient appears in no apparent distress at this time. Patient and/or eh3 family updated on plan of care and expected duration. Pain level reassessed. Patient is alert, oriented x 3, equal unlabored respirations, skin warm/dry/pink. 16:00 Reassessment: Patient appears in no apparent distress at this time. Patient and/or eh3 family updated on plan of care and expected duration. Pain level reassessed. Patient is alert, oriented x 3, equal unlabored respirations, skin warm/dry/pink. 17:00 Reassessment: Patient appears in no apparent distress at this time. Patient and/or eh3 family updated on plan of care and expected duration. Pain level reassessed. Patient is alert, oriented x 3, equal unlabored respirations, skin warm/dry/pink. Vital Signs: 14:23 BP 150 / 82; Pulse 82; Resp 16; Temp 98; Pulse Ox 100% on R/A; Weight 90.72 kg; Height hb 6 ft. 2 in. ; Pain 8/10; 15:00 BP 106 / 82; Pulse 75; Resp 16; Pulse Ox 98% ; eh3 16:00 BP 133 / 78; Pulse 65; Resp 18; Pulse Ox 100% on R/A; eh3 17:00 BP 129 / 90; Pulse 68; Resp 18; Pulse Ox 100% on R/A; eh3 14:23 Body Mass Index 25.68 (90.72 kg, 187.96 cm) hb 14:23 Pain Scale: Adult hb ED Course: 14:20 Patient arrived in ED. rn 14:20 Adolph Madrid MD is Attending Physician. rn 14:20 Attending Physician role handed off by Adolph Madrid MD rt 14:20 Justyn Campa MD is Attending Physician. rt 14:21 Anita Recio, ELADIA is Primary Nurse. 3 14:25 Triage completed. hb 14:26 Arm band placed on. hb 14:30 Patient has correct armband on for positive identification. Bed in low position. Call eh3 light in reach. Side rails up X2. Provided Education on: Use of call campbell. Pulse ox on. NIBP on. 14:45 Inserted saline lock: 20 gauge in left antecubital area, using aseptic technique. Blood eh3 collected. 15:28 CT Abd/Pelvis - IV Contrast Only In Process Unspecified. EDMS 17:38 No provider procedures requiring assistance completed. IV discontinued, intact, eh3 bleeding controlled, No redness/swelling at site. Pressure dressing applied. Administered Medications: 14:55 Drug: morphine IVP or IV 4 mg Route: IVP; Infused Over: 4 mins; Site: left antecubital; eh3 16:43 Follow up: Response: No adverse reaction eh3 14:55 Drug: Ondansetron IVP 4 mg Route: IVP; Site: left antecubital; eh3 16:43 Follow up: Response: No adverse reaction eh3 16:43 Drug: Ketorolac IVP 15 mg Route: IVP; Site: left antecubital; eh3 16:43 Drug: Cyclobenzaprine PO 10 mg Route: PO; eh3 16:43 Drug: morphine IVP or IV 4 mg Route: IVP; Infused Over: 4 mins; Site: left antecubital; eh3 Medication: 17:38 VIS not applicable for this client. eh3 Outcome: 17:19 Discharge ordered by . rt 17:38 Discharged to home ambulatory. eh3 17:38 Condition: stable 17:38 Discharge instructions given to patient, Instructed on discharge instructions, follow up and referral plans. medication usage, Demonstrated understanding of instructions, follow-up care, medications, Prescriptions given X 3. 17:46 Patient left the ED. eh3 Signatures: Dispatcher [employer] EDMS Adloph Madrid MD MD rn Baxter, Heather, RN RN Anita Recio RN RN 3 Justyn Campa MD MD rt
[2023-04-23 18:02] VITALS: TEMP 98; O2SAT 100
[2023-04-23 18:06] VITALS: BP 129/90
== END 2023-04-23 17:46 | disposition home or self-care (01) ==
LOC: ER 14:06
DX: S32.019A Unspecified fracture of first lumbar vertebra, initial encounter for closed fracture (principal); S32.029A Unspecified fracture of second lumbar vertebra, initial encounter for closed fracture; S32.039A Unspecified fracture of third lumbar vertebra, initial encounter for closed fracture; W18.30XA Fall on same level, unspecified, initial encounter; I10 Essential (primary) hypertension
CPT/HCPCS: 85025; 36415; 80053; 74177; 96375; 96374; 99285; Q9967; J2405